=== PATIENT | male | born 1940 | race Caucasian/White ===

== ENCOUNTER → 2018-10-16 | Outpatient (CLI) | payer OTHER ==
[~2018-10-16] MED LIST: ACCUNEB SO1.25 MG/1; ADULT LOW DOSE81 MG PO; ASPIRIN EC81 M1 PO; ATORVASTATIN CA40 MG PO; CARDIZEM PO; COLACE100 MG PO; CRESTOR10 MG PO; DILTIAZEM ER300 MG PO; FERREX 150 FORT1 CAP PO; FLAX OIL1000 MG PO; FLOMAX PO; FLOMAX0.4 MG PO; FOLIC ACID 40400 MC1 PO; FOLIC ACID 40400 MCG PO; HYDROCHLOROTHIA25 M1 PO; KEFLEX500 MG PO; KLOR-CON 10 ER10 MEQ PO; KLOR-CON 1010 MEQ PO; LISINOPRIL5 MG PO; NORCO 5-325 TA1 EACH; NORCO 5-325 TA1 EACH PO; OCUVITE SOFTGE1 EAC1 PO; OCUVITE TABLET1 EAC1 PO; PROSCAR 5MG TABL5 M1 PO; PROSCAR 5MG TABL5 MG PO; PROZAC 10 MG CA10 M1 PO; PROZAC 20 MG20 M1 PO; PROZAC20 MG PO; SINGULAIR 10 MG10 M1 PO; SYNTHROID112 MCG PO; TAMSULOSIN HCL0.4 M1 PO; TOPROL XL50 MG PO; ULTRAM 50MG TAB50 MG PO; VITAMIN B-1100 M1 PO; VITAMIN B-1100 MG PO; VITAMIN D-32000 UNIT PO; VITAMIN D1000 UNI2 PO; VITAMIN E400 UNI2 PO; VITAMIN E400 UNIT PO; ZOCOR40 MG PO; [UNRECOGNIZED DRUG - OTHER] PO
== END ==
LOC: RAD 15:05
DX: M47.27 Other spondylosis with radiculopathy, lumbosacral region (principal); Z98.890 Other specified postprocedural states

== ENCOUNTER → 2018-10-23 | Outpatient (CLI) | payer OTHER | LOC: MRI 07:10 | DX: S83.242A Other tear of medial meniscus, current injury, left knee, initial encounter (principal); X58.XXXA Exposure to other specified factors, initial encounter; Y93.89 Activity, other specified; Y92.89 Other specified places as the place of occurrence of the external cause; Y99.8 Other external cause status ==

== ENCOUNTER → 2019-11-04 | Outpatient (CLI) | payer OTHER | LOC: SJCVC 10:02 | DX: I44.4 Left anterior fascicular block (principal); R94.31 Abnormal electrocardiogram [ECG] [EKG]; I25.810 Atherosclerosis of coronary artery bypass graft(s) without angina pectoris; I10 Essential (primary) hypertension; E78.00 Pure hypercholesterolemia, unspecified; E78.5 Hyperlipidemia, unspecified; Z87.891 Personal history of nicotine dependence; Z79.82 Long term (current) use of aspirin; Z79.899 Other long term (current) drug therapy; Z95.1 Presence of aortocoronary bypass graft; Z85.850 Personal history of malignant neoplasm of thyroid ==

== ENCOUNTER 2020-03-01 12:56 | Emergency (ER) | payer OTHER ==
[~2020-03-01] VITALS: Ht 167.6 cm; Wt 84.8 kg
[2020-03-01] MEDS ORDERED: KLOR-CON 1010 MEQ PO (13:52)
[2020-03-01] MEDS ORDERED: LIPITOR40 MG PO (13:52)
[2020-03-01] MEDS ORDERED: CENTRUM SILVER1 EAC4 PO (13:53)
[2020-03-01 14:28] LABS: ABSOLUTE NEUTROPHILS 7.2 thou/uL (1.4-8.2); BASOPHILS 0.9 % (0.0-2.0); EOSINOPHILS 0.4 % (0.0-3.0); HEMATOCRIT 44.6 % (42.0-52.0); HEMOGLOBIN 15.4 gm/dL (14.0-18.0); LYMPHOCYTES 16.8 % (24.0-44.0); MCH 30.1 pg (26.0-34.0); MCHC 34.5 g/dL (28.0-37.0); MCV 87.4 fL (80.0-100.0); MONOCYTES 5.8 % (1.0-8.0); PLATELET COUNT 259 thou/uL (150-400); POLYS 76.1 % (36.0-66.0); RBC 5.11 mil/uL (4.50-6.00); RDW 14.1 % (10.5-14.5); WBC 9.4 thou/uL (4.0-11.0)
[2020-03-01 14:39] LABS: ANION GAP 8 mmol/L (7-16); BUN 37 mg/dL (7-18); CALCIUM 9.7 mg/dL (8.5-10.1); CHLORIDE 101 mmol/L (98-107); CO2 28 mmol/L (21-32); CREATININE 1.7 mg/dL (0.7-1.3); GLUCOSE 125 mg/dL (74-106); POTASSIUM 4.3 mmol/L (3.5-5.1); SODIUM 137 mmol/L (136-145)
[2020-03-01 14:49] LABS: ALBUMIN 4.1 g/dL (3.4-5.0); DIRECT BILIRUBIN 0.2 mg/dL (<0.1-0.2); SGOT 48 U/L (15-37); SGPT 31 U/L (30-65); TOTAL PROTEIN 7.6 g/dL (6.4-8.2); TROPONIN-I <0.06 ng/mL (<0.06)
[2020-03-01 16:20] VITALS: BP 123/59
--- NOTE | 2020-03-02 08:18 | EKG ---
[facility] [place] [address] ELECTROCARDIOGRAM REPORT Name: YAMINI LEMOS Room #: DEP [facility]#: [id number] Admission: 03/01/20 Attend Phys: Discharge: 03/01/20 Date of : 38 Report #: [id number] THIS REPORT FOR: cc: Alpesh Ramirez,Justin Patiño MD [facility] THIS REPORT FOR: //name// [facility] ED Test Date: 2020-03-01 Test Time: 14:31:57 Pat Name: YAMINI LEMOS Department: Room: Gender: Merchandise Clerk: [facility] : 1940 Requested By: Marisela Calderon Order Number: [id number] MD: Justin Kaufman Measurements Intervals [place] Rate: 56 P: 66 NM: 133 QRS: -51 QRSD: 101 T: 36 QT: 464 QTc: 448 Interpretive Statements Sinus rhythm Left anterior fascicular block Abnormal R-wave progression, early transition Borderline T wave abnormalities Compared to ECG 04/12/2014 07:33:45 No significant change was found Electronically Signed On 03-02-2020 8:18:30 CDT by Justin Kaufman [email or web address] <ELECTRONICALLY SIGNED> By: Justin Kaufman MD, [facility] 03/02/20 0818 1431 1431 Justin Kaufman MD, [facility] /EPI
== END 2020-03-01 16:21 | disposition home or self-care (01) ==
LOC: ER 12:56
PROVIDERS: Emergency Medicine
DX: R42 Dizziness and giddiness (principal); N17.9 Acute kidney failure, unspecified; E86.0 Dehydration; I10 Essential (primary) hypertension; E03.9 Hypothyroidism, unspecified; E78.5 Hyperlipidemia, unspecified; Z90.89 Acquired absence of other organs; Z79.82 Long term (current) use of aspirin; Z79.899 Other long term (current) drug therapy; Z91.018 Allergy to other foods; Z88.8 Allergy status to other drugs, medicaments and biological substances

== ENCOUNTER → 2020-03-10 | Outpatient (CLI) | payer OTHER ==
[~2020-03-10] MED LIST changes: +CENTRUM SILVER1 EAC4 PO; +LIPITOR40 MG PO
== END ==
LOC: SJCVC 09:10
PROVIDERS: ATTEND Internal Medicine
DX: I44.4 Left anterior fascicular block (principal); R00.1 Bradycardia, unspecified; R94.31 Abnormal electrocardiogram [ECG] [EKG]; I25.810 Atherosclerosis of coronary artery bypass graft(s) without angina pectoris; I10 Essential (primary) hypertension; E78.00 Pure hypercholesterolemia, unspecified; E78.5 Hyperlipidemia, unspecified; Z95.1 Presence of aortocoronary bypass graft; Z85.850 Personal history of malignant neoplasm of thyroid; Z79.82 Long term (current) use of aspirin; Z79.899 Other long term (current) drug therapy; Z87.891 Personal history of nicotine dependence

== ENCOUNTER → 2020-09-10 | Outpatient (CLI) | payer OTHER | LOC: SJCVC 13:33 | PROVIDERS: ATTEND Internal Medicine | DX: I49.1 Atrial premature depolarization (principal); R94.31 Abnormal electrocardiogram [ECG] [EKG]; I25.810 Atherosclerosis of coronary artery bypass graft(s) without angina pectoris; I10 Essential (primary) hypertension; E78.00 Pure hypercholesterolemia, unspecified; E78.5 Hyperlipidemia, unspecified; Z79.82 Long term (current) use of aspirin; Z79.899 Other long term (current) drug therapy; Z87.891 Personal history of nicotine dependence; Z95.1 Presence of aortocoronary bypass graft; Z85.850 Personal history of malignant neoplasm of thyroid ==